=== PATIENT | female | born 1970 | race Caucasian/White ===

== ENCOUNTER 2020-02-06 17:56 | Emergency (ER) | payer OTHER, SELFPAY ==
--- NOTE | 2020-02-06 | ECG_ITS ---
Test Reason : CHEST PAIN Blood Pressure : / mmHG Vent. Rate : 079 BPM Atrial Rate : 079 BPM P-R Int : 144 ms QRS Dur : 108 ms QT Int : 400 ms P-R-T Axes : 065 -05 046 degrees QTc Int : 458 ms Normal sinus rhythm Incomplete right bundle branch block Normal ECG No previous ECGs available Referred By: Generic ED Physician Electronically Signed By:STEPHON BRADY MD
[2020-02-06 18:41] VITALS: PULSE 105; RESP 16; TEMP 36.5; O2SAT 100; BMI 23.3
--- NOTE | 2020-02-06 18:48 | XR_ITS ---
EXAMINATION: PORTABLE CHEST 1 VIEW CLINICAL INFORMATION: Chest pain . COMPARISON: No recent pertinent prior studies are available for comparison. TECHNIQUE: Portable frontal view of the chest was obtained. FINDINGS: The lungs are well expanded. No focal infiltrate, effusion, edema, or pneumothorax. Cardiac and mediastinal silhouettes are within normal limits for technique. No acute bony abnormality seen. XR/XR chest 1V IMPRESSION: No evidence of acute disease.
--- NOTE | 2020-02-06 18:52 | ED_ITS ---
HPI - Chest Pain General Chief Complaint: Chest Pain Stated Complaint: CHEST PAIN Time Seen by Provider: 02/06/20 18:36 Source: patient Mode of arrival: ambulatory Limitations: no limitations History of Present Illness HPI narrative: Patient presents to ED for pressure-like chest pain that began since 17:00. Patient states chest pain started while having a constant antony where her daughter over the phone. Patient describes chest pain as pressure ( someone sitting on her chest). Patient states also left arm tingling. Patient states he has never happened before. Patient denies any drug use past medical history. Patient does not know her family history.. Related Data Home Medications Medication Instructions Recorded Confirmed bupropion HCl 1 tab PO DAILY 02/06/20 02/06/20 trazodone 1 tab PO BEDTIME PRN 02/06/20 02/06/20 Allergies Allergy/AdvReac Type Severity Reaction Status Date / Time No Known Allergies Allergy Verified 02/06/20 18:48 Review of Systems Constitutional: Constitutional: Reports as per HPI and Reports no additional constitutional complaints Eyes: Eyes: Reports as per HPI and Reports no additional eye complaints ENT: Reports system reviewed and no additional complaints, except as documented and Reports as per HPI Cardiovascular: Cardiovascular: Reports as per HPI, Reports no additional cardiovascular complaints and Reports chest pain Respiratory: Respiratory: Reports as per HPI and Reports no additional respiratory complaints Gastrointestinal: Gastrointestinal: Reports as per HPI and Reports no additional gastrointestinal complaints Musculoskeletal: Musculoskeletal: Reports no additional musculoskeletal complaints and Reports as per HPI Neurologic: Reports system reviewed and no additional complaints, except as documented and Reports as per HPI [facility] Past Medical History Medical History (Updated 02/07/20 @ 00:29 by OLAYINKA Hay) WPW (Qqwzn-Cxenkchey-Jjcpu syndrome) Social History Social History Alcohol intake: unknown Smoking Status: Unknown if ever smoked Use of substances other than those prescribed or required for medical reasons: No Advance Directives: No Advance Directives Information Provided: No Physical Exam Vital Signs: Vital Signs: Last Vital Signs Temp 97.7 F 02/06/20 20:17 Pulse 74 02/06/20 22:00 Resp 16 02/06/20 22:00 BP 132/78 02/06/20 22:00 Pulse Ox 99 02/06/20 22:00 Body Mass Index 23.3 Const: General: cooperative, healthy appearing, alert and awake Orientation/consciousness: oriented to person, oriented to place, oriented to time and patient oriented x3 HENMT: Head: Yes normal to inspection and Yes No palpable skull fracture pres ent Eyes: General: appearance normal, both eyes and all related structures Neck: Neck: Yes normal visual inspection and Yes full ROM Chest: Chest palpation & inspection: normal inspection of the chest and normal palpation of entire chest wall Resp: Effort & Inspection: normal respiratory effort and able to speak in complete sentences Auscultation: clear to auscultation bilaterally Cardio: Jugular venous distension: no JVD Heart sounds: S1 normal heart sound present GI: Inspection: Yes normal to inspection and No abdominal wall ecchymosis Palpation (GI): Soft to palpation, not firm, nontender and no guarding : General: No CVA tenderness and Yes no CVA tenderness Back/Spine/Pelvis: Back: no CVA tenderness, No CVA tenderness and No back tenderness Skin: General skin exam: no rashes or lesions noted and elasticity normal Neuro: General: oriented to person, oriented to place, oriented to time, patient oriented x3, gait normal and CN's II-XI intact bilaterally Cranial nerves: Yes CN's II-XII intact bilaterally Extrem: Other: Lower extremities negative for any swelling, pitting edema, or calf pain. General: Yes normal to inspection and Yes full ROM Psych: Other: Anxious Appearance: grossly normal and well kempt Course Course Course Narrative: Patient seems very anxious. Will do medical evaluation to make sure there is no life-threatening etiology. While evaluating patient states chest pain felt better while she sit up. Patient states chest pain was worse when she lies down flat. This may indicate pericarditis, but patient denies any pleuritic chest pain and does states pressure. Also EKG does not have any diffuse ST elevation. Pericarditis is unlikely. Will give aspirin and 1 nitrate. Patient states pain improved area became back. Will also do a D-dimer to make sure there is no typical PE presentation. Initially EKG is normal. Reevaluation(s) Reevaluation #1: Patient's chest pressure resolved after receiving 1 nitrate and aspirin. Patient had elevated D-dimer so she was sent for chest CT which was negative for PE. Initial troponin was positive. Chest x-ray normal. Plans to do repeat troponin to make sure there is not acute myocardial infarction. Time: 20:17 Reevaluation #2: Patient signed out against medical advice. Patient did not want to wait for results. patient was informed risks of , CA, and life disablity. patient still wanted to sign out agjulia GIBBONS. Chest CT negative for PE Time: 22:44 Reevaluation #3: Patient was called back and informed of elevated troponin level which could indicate myocardial infarction. Patient informed to come back to the ER immediately. Time: 23:01 MDM - Chest Pain MDM Narrative Medical decision making narrative: Chest pain Lab Data Result diagrams: 02/06/20 19:11 02/06/20 19:11 Labs: Lab Results 02/06/20 02/06/20 02/06/20 Range/Units 19:11 19:11 19:11 WBC 9.1 (4.8-10.8) X10*3/uL RBC 4.59 (4.20-5.50) X10*6/uL Hgb 14.3 (12.0-16.0) g/dl Hct 42.4 (37-47) % MCV 92.4 (80-98) fL MCH 31.2 (27.0-33.0) pg MCHC 33.7 (31.0-35.0) g/dl RDW 12.2 (11.0-16.0) % Plt Count 260 (160-400) X10*3/uL MPV 9.4 (9.4-12.3) fL Immature Gran % (Auto) 0.3 (0.0-0.4) % Neut % (Auto) 69.4 (45-73) % Lymph % (Auto) 24.4 (20-40) % [place] % (Auto) 4.2 (2-11) % Eos % (Auto) 1.0 (0-4) % Baso % (Auto) 0.7 (0-2) % Lymph # (Auto) 2.2 (1.2-4.9) X10*3/uL [place] # (Auto) 0.4 (0.1-1.2) X10*3/uL Eos # (Auto) 0.1 (0.0-0.4) X10*3/uL Baso # (Auto) 0.1 (0.0-0.2) X10*3/uL Abs Immat Gran (auto) 0.03 (0.00-0.03) X10*3/uL Absolute Neuts (auto) 6.4 (2.0-8.3) X10*3/uL Absolute Nucleated RBC 0.000 (0.0-0.012) X10*3/uL Nucleated RBC % (auto) 0.0 (0.0-0.2) /100WBC PT 11.5 (10.8-13.0) SEC INR 1.0 (0.9-1.1) APTT 30.9 (24.1-38.0) SEC D-Dimer 433 NG/ML Sodium 140 (135-145) mmol/L Potassium 3.7 (3.3-5.1) mmol/l Chloride 103 (96-108) mmol/L Carbon Dioxide 24 (22-29) mmol/L Anion Gap 17 (12-20) BUN 11 (9-16) mg/dL Creatinine 0.84 (0.5-1.4) mg/dL Estim Creat Clear Calc 72.8 Estimated GFR > 60 Random Glucose 83 (60-115) mg/dL Calcium 9.7 (8.4-10.2) mg/dL Total Bilirubin 0.4 (0.0-1.0) mg/dL AST 33 H (5-31) U/L ALT 27 (0-31) U/L Alkaline Phosphatase 89 (39-117) U/L Troponin I High Sens (<3.5-17.0) ng/L B-Natriuretic Peptide (<100) pg/mL Total Protein 6.8 (6.5-8.0) g/dL Albumin 4.7 (3.5-5.0) g/dL Beta HCG, Quant < 2 mIU/mL Coronavirus (PCR) (Negative) Influenza Type A (PCR) (Negative) Influenza Type B (PCR) (Negative) RSV RNA Qual (PCR) (Negative) 02/06/20 02/06/20 02/06/20 Range/Units 19:11 19:11 19:11 WBC (4.8-10.8) X10*3/uL RBC (4.20-5.50) X10*6/uL Hgb (12.0-16.0) g/dl Hct (37-47) % MCV (80-98) fL MCH (27.0-33.0) pg MCHC (31.0-35.0) g/dl RDW (11.0-16.0) % Plt Count (160-400) X10*3/uL MPV (9.4-12.3) fL Immature Gran % (Auto) (0.0-0.4) % Neut % (Auto) (45-73) % Lymph % (Auto) (20-40) % [place] % (Auto) (2-11) % Eos % (Auto) (0-4) % Baso % (Auto) (0-2) % Lymph # (Auto) (1.2-4.9) X10*3/uL [place] # (Auto) (0.1-1.2) X10*3/uL Eos # (Auto) (0.0-0.4) X10*3/uL Baso # (Auto) (0.0-0.2) X10*3/uL Abs Immat Gran (auto) (0.00-0.03) X10*3/uL Absolute Neuts (auto) (2.0-8.3) X10*3/uL Absolute Nucleated RBC (0.0-0.012) X10*3/uL Nucleated RBC % (auto) (0.0-0.2) /100WBC PT (10.8-13.0) SEC INR (0.9-1.1) APTT (24.1-38.0) SEC D-Dimer NG/ML Sodium (135-145) mmol/L Potassium (3.3-5.1) mmol/l Chloride (96-108) mmol/L Carbon Dioxide (22-29) mmol/L Anion Gap (12-20) BUN (9-16) mg/dL Creatinine (0.5-1.4) mg/dL Estim Creat Clear Calc Estimated GFR Random Glucose (60-115) mg/dL Calcium (8.4-10.2) mg/dL Total Bilirubin (0.0-1.0) mg/dL AST (5-31) U/L ALT (0-31) U/L Alkaline Phosphatase (39-117) U/L Troponin I High Sens 17.8 H (<3.5-17.0) ng/L B-Natriuretic Peptide < 10 (<100) pg/mL Total Protein (6.5-8.0) g/dL Albumin (3.5-5.0) g/dL Beta HCG, Quant mIU/mL Coronavirus (PCR) NEGATIVE (Negative) Influenza Type A (PCR) NEGATIVE (Negative) Influenza Type B (PCR) NEGATIVE (Negative) RSV RNA Qual (PCR) NEGATIVE (Negative) 02/06/20 Range/Units 22:17 WBC (4.8-10.8) X10*3/uL RBC (4.20-5.50) X10*6/uL Hgb (12.0-16.0) g/dl Hct (37-47) % MCV (80-98) fL MCH (27.0-33.0) pg MCHC (31.0-35.0) g/dl RDW (11.0-16.0) % Plt Count (160-400) X10*3/uL MPV (9.4-12.3) fL Immature Gran % (Auto) (0.0-0.4) % Neut % (Auto) (45-73) % Lymph % (Auto) (20-40) % [place] % (Auto) (2-11) % Eos % (Auto) (0-4) % Baso % (Auto) (0-2) % Lymph # (Auto) (1.2-4.9) X10*3/uL [place] # (Auto) (0.1-1.2) X10*3/uL Eos # (Auto) (0.0-0.4) X10*3/uL Baso # (Auto) (0.0-0.2) X10*3/uL Abs Immat Gran (auto) (0.00-0.03) X10*3/uL Absolute Neuts (auto) (2.0-8.3) X10*3/uL Absolute Nucleated RBC (0.0-0.012) X10*3/uL Nucleated RBC % (auto) (0.0-0.2) /100WBC PT (10.8-13.0) SEC INR (0.9-1.1) APTT (24.1-38.0) SEC D-Dimer NG/ML Sodium (135-145) mmol/L Potassium (3.3-5.1) mmol/l Chloride (96-108) mmol/L Carbon Dioxide (22-29) mmol/L Anion Gap (12-20) BUN (9-16) mg/dL Creatinine (0.5-1.4) mg/dL Estim Creat Clear Calc Estimated GFR Random Glucose (60-115) mg/dL Calcium (8.4-10.2) mg/dL Total Bilirubin (0.0-1.0) mg/dL AST (5-31) U/L ALT (0-31) U/L Alkaline Phosphatase (39-117) U/L Troponin I High Sens 142.7 H D (<3.5-17.0) ng/L B-Natriuretic Peptide (<100) pg/mL Total Protein (6.5-8.0) g/dL Albumin (3.5-5.0) g/dL Beta HCG, Quant mIU/mL Coronavirus (PCR) (Negative) Influenza Type A (PCR) (Negative) Influenza Type B (PCR) (Negative) RSV RNA Qual (PCR) (Negative) ECG Data ECG #1: Interpretation: Normal sinus rhythm. Normal EKG. Ventricular rate 76. Pr interval 144. QTC 458. Negative STEMI Discharge Plan Discharge Clinical Impression: Chest pain Patient Disposition: Left Against Medical Advice Instructions: Chest Pain (ED), Acute Coronary Syndrome (ED) Additional Instructions: Return to the ED immediately for any worsening chest pain, shortness of breath, swelling of lower extremities, or any other concerning symptoms. Prescriptions: No Action trazodone 100 mg tablet 1 tab PO BEDTIME PRN (Reason: insomnia) RF: 0 bupropion HCl 300 mg tablet extended release 24 hr 1 tab PO DAILY RF: 0 Referrals: Talon Marion MD [Physician] - 2 days (Chest pain. Acute coronary syndrome. Sign out against medical advice) Stand Alone Forms: Against Medical Advice Interventions: ED Discharge Assessment Last Done: 02/06/20 22:38 Discharge Date/Time: 02/06/20 22:50 Print Language: Thai
[2020-02-06 19:13] VITALS: BP 137/81; PULSE 96
[2020-02-06] MEDS: Nitroglycerin 0.4 MG TAB.SUBL SUBLINGUAL (19:13)
[2020-02-06] MEDS: Aspirin Enteric Coated 325 MG TABLET.DR PO (19:15)
[2020-02-06 19:20] LABS: MANUAL DIFF FLAG NO
[2020-02-06 19:23] LABS: Prothrombin Time 11.5 SEC (10.8-13.0)
[2020-02-06 19:25] VITALS: PULSE 96
[2020-02-06 19:25] LABS: Partial Thromboplastin Time 30.9 SEC (24.1-38.0)
[2020-02-06 19:26] LABS: D Dimer 433 NG/ML
--- NOTE | 2020-02-06 19:35 | PC.NURSE ---
IV PLACED AND LABS DRAWN. COVID COLLECTED AND SENT.
[2020-02-06 19:41] LABS: Basophils Absolute Auto 0.1 X10*3/uL (0.0-0.2); Basophils Percent Auto 0.7 % (0-2); Eosinophils Absolute Auto 0.1 X10*3/uL (0.0-0.4); Hematocrit 42.4 % (37-47); Hemoglobin 14.3 g/dl (12.0-16.0); Imm Gran Abs Auto 0.03 X10*3/uL (0.00-0.03); Imm Gran Pct Auto 0.3 % (0.0-0.4); Lymphocytes Absolute Auto 2.2 X10*3/uL (1.2-4.9); Lymphocytes Percent Auto 24.4 % (20-40); Mean Corpuscular HGB Conc 33.7 g/dl (31.0-35.0); Mean Corpuscular Hemoglobin 31.2 pg (27.0-33.0); Mean Corpuscular Volume 92.4 fL (80-98); Mean Platelet Volume 9.4 fL (9.4-12.3); Monocytes Absolute Auto 0.4 X10*3/uL (0.1-1.2); Monocytes Percent Auto 4.2 % (2-11); Neutrophils Absolute Auto 6.4 X10*3/uL (2.0-8.3); Neutrophils Percent Auto 69.4 % (45-73); Platelet Count 260 X10*3/uL (160-400); Red Blood Count 4.59 X10*6/uL (4.20-5.50); Red Cell Distribution Width 12.2 % (11.0-16.0); White Blood Count 9.1 X10*3/uL (4.8-10.8)
[2020-02-06 19:51] LABS: Troponin-I High Sensitivity 17.8 ng/L (<3.5-17.0)
[2020-02-06 19:57] LABS: Influenza A PCR NEGATIVE (Negative); Influenza B PCR NEGATIVE (Negative); Resp Syncy Virus RNA Qual PCR NEGATIVE (Negative); SARS COV2 PCR INHOUSE NEGATIVE (Negative)
[2020-02-06 20:09] LABS: Alanine Aminotransferase 27 U/L (0-31); Albumin Level 4.7 g/dL (3.5-5.0); Alkaline Phosphatase 89 U/L (39-117); Anion Gap 17 (12-20); Aspartate Amino Transferase 33 U/L (5-31); Bilirubin Total 0.4 mg/dL (0.0-1.0); Blood Urea Nitrogen 11 mg/dL (9-16); Calcium 9.7 mg/dL (8.4-10.2); Carbon Dioxide 24 mmol/L (22-29); Chloride 103 mmol/L (96-108); Creatinine Clr Calc Pharmacy 72.8; Estimated Glomerular Filt Rate > 60; Glucose Random 83 mg/dL (60-115); Potassium 3.7 mmol/l (3.3-5.1); Sodium 140 mmol/L (135-145); Total Protein 6.8 g/dL (6.5-8.0)
[2020-02-06 20:11] LABS: B Type Natriuretic Peptide < 10 pg/mL (<100)
--- NOTE | 2020-02-06 20:12 | CT_ITS ---
EXAMINATION: CT ANGIOGRAM OF THE CHEST WITH AND WITHOUT CONTRAST (CT PULMONARY ANGIOGRAM FOR PE) CLINICAL INFORMATION: Elevated d-dimer. Chest pain. Pulmonary embolism? COMPARISON: Chest x-ray earlier the same day TECHNIQUE: Prior to contrast administration, noncontrast localization images were obtained. Subsequently, multidetector volumetric imaging was performed from the thoracic inlet to below the diaphragms following the administration of 65 mL Omnipaque 350 intravenous contrast. No contrast reaction reported Sagittal, coronal, and MIP oblique sagittal reformatted images were obtained on the CT workstation, uploaded to PACS, and reviewed. This CT examination was performed using dose optimization techniques as appropriate, variously including the following: *Automated exposure control *Adjustment of mA and/or kV according to patient size (this includes techniques or standardized protocols for targeted exams where dose is matched to indication/reason for exam; i.e. extremities or head) *Use of iterative reconstruction technique Total exam dose-length product 260 mGy-cm FINDINGS: QUALITY OF STUDY/CONTRAST BOLUS: Satisfactory. PULMONARY ARTERIES: No central or segmental pulmonary emboli. THORACIC AORTA: No aneurysm or dissection. LUNG: There is mosaic lung attenuation suggesting small airways disease. Scattered small pulmonary nodules are present. 3 mm right upper lobe nodule in image 118/458. 5 mm right lower lobe nodule in image 222. PLEURA: No pleural effusion or pneumothorax. MEDIASTINUM: Normal heart size. No pericardial effusion. No hilar or mediastinal lymphadenopathy. No evidence of septal bowing or right heart strain. CHEST WALL/AXILLA: No axillary or internal mammary lymphadenopathy. OSSEOUS STRUCTURES: Likely bone island in T8. No acute or suspicious osseous abnormality. UPPER ABDOMEN: No adrenal mass. No reflux of contrast into the hepatic veins to suggest elevated right heart pressures. CT/CT angio chest PE protocol IMPRESSION: No pulmonary embolus seen. There is diffuse mosaic lung attenuation suggesting small airways disease. A few scattered pulmonary nodules are present for example a 3 mm right upper lobe pulmonary nodule and a 5 mm right lower lobe pulmonary nodule. According to the UPDATED 2017 Fleischner Society recommendations, the advised follow-up imaging for solid nodules < 6 mm is: LOW RISK PATIENT: No routine follow-up. HIGH RISK PATIENT: Optional CT at 12 months. VTE: negative
[2020-02-06 20:14] VITALS: BP 156/100; PULSE 79; RESP 16
[2020-02-06 20:17] VITALS: BP 156/100; PULSE 80; RESP 15; TEMP 36.5
--- NOTE | 2020-02-06 20:46 | PC.NURSE ---
Patient currently in cat scan. Patient reports having a headache and PA aware. Patient prescribed motrin
[2020-02-06] MEDS: iohexoL 350 MG/ML 100 ML INFUS..BTL 65 ML IV (20:50)
[2020-02-06] MEDS: Ibuprofen 800 MG TABLET PO (21:00)
[2020-02-06 22:00] VITALS: BP 132/78; PULSE 74; RESP 16; O2SAT 99
--- NOTE | 2020-02-06 22:07 | PC.NURSE ---
Patient's CAT SCAN negative for pulmonary embolism. Patient needs 2nd troponin drawn at 1022.
[2020-02-06 22:51] LABS: Troponin-I High Sensitivity 142.7 ng/L (<3.5-17.0)
--- NOTE | 2020-02-06 22:51 | PC.NURSE ---
LAB CALLING WITH CRITICAL TROPONIN OF 142.7. PATIENT LEFT AMA. SHAHNAZ BHAGAT INFORMED OF RESULT AT THIS TIME.
[2020-02-07 00:06] LABS: HCG Quantitative < 2 mIU/mL
== END 2020-02-06 22:50 | disposition left against medical advice (07) ==
PROVIDERS: Physician Assistant; Emergency Provider Emergency Medicine; PCP Nurse Practitioner Family
DX: R07.9 Chest pain, unspecified (principal); Z20.828 Contact with and (suspected) exposure to other viral communicable diseases
CPT/HCPCS: 0241U; 36415; 71045; 71275; 80053; 83880; 84484; 84702; 85025; 85379; 85610; 85730; 93005; 99285; Q9967

== ENCOUNTER 2020-02-06 23:20 | Inpatient (IN) | payer OTHER, SELFPAY ==
[2020-02-06 23:30] VITALS: BP 149/95; PULSE 82; RESP 12; TEMP 36.7; O2SAT 100; BMI 23.3
--- NOTE | 2020-02-06 23:38 | ECG_ITS ---
Test Reason : ELEVATED TROP Blood Pressure : / mmHG Vent. Rate : 069 BPM Atrial Rate : 069 BPM P-R Int : 150 ms QRS Dur : 112 ms QT Int : 416 ms P-R-T Axes : 063 010 051 degrees QTc Int : 445 ms Normal sinus rhythm Incomplete right bundle branch block Normal ECG When compared with ECG of 06-FEB-2020 18:04, No significant change was found Referred By: Darinel Valdovinos Electronically Signed By:STEPHON BRADY MD
--- NOTE | 2020-02-06 23:46 | ED.CHESTPAIN ---
HPI - Chest Pain General Chief Complaint: Chest Pain Stated Complaint: elevated labs Time Seen by Provider: 02/06/20 23:27 Source: patient Mode of arrival: ambulatory Limitations: no limitations History of Present Illness HPI narrative: Patient return to the ER after she she was called and informed of elevated troponin. Patient presently does not have any chest pain. Related Data Home Medications Medication Instructions Recorded Confirmed bupropion HCl 1 tab PO DAILY 02/06/20 02/06/20 trazodone 1 tab PO BEDTIME PRN 02/06/20 02/06/20 Allergies Allergy/AdvReac Type Severity Reaction Status Date / Time No Known Allergies Allergy Verified 02/06/20 18:48 Review of Systems Review of Systems: Yes all other systems are reviewed and are negative Constitutional: Constitutional: Reports as per HPI and Reports no additional constitutional complaints Eyes: Eyes: Reports as per HPI and Reports no additional eye complaints ENT: Reports system reviewed and no additional complaints, except as documented and Reports as per HPI Cardiovascular: Cardiovascular: Reports as per HPI, Reports no additional cardiovascular complaints and Reports chest pain (Chest pain resolved) Respiratory: Respiratory: Reports as per HPI and Reports no additional respiratory complaints Gastrointestinal: Gastrointestinal: Reports no additional gastrointestinal complaints Musculoskeletal: Musculoskeletal: Reports no additional musculoskeletal complaints and Reports as per HPI Neurologic: Reports system reviewed and no additional complaints, except as documented and Reports as per HPI Psychiatric: Psychiatric: Reports no additional psychiatric complaints and Reports as per HPI PMF Past Medical History Medical History (Updated 02/07/20 @ 00:29 by OLAYINKA Hay) WPW (Jbpet-Ixzhwqese-Wttrg syndrome) Social History Social History Alcohol intake: unknown Smoking Status: Unknown if ever smoked Use of substances other than those prescribed or required for medical reasons: No Advance Directives: No Advance Directives Information Provided: No Physical Exam Vital Signs: Vital Signs: Last Vital Signs Temp 98.1 F 02/06/20 23:30 Pulse 82 02/06/20 23:30 Resp 12 02/06/20 23:30 BP 149/95 H 02/06/20 23:30 Pulse Ox 100 02/06/20 23:30 Body Mass Index 24.3 Const: General: cooperative, healthy appearing, comfortable, no acute distress, well developed, alert, awake and Physically active Orientation/consciousness: patient oriented x3 HENMT: Head: Yes normal to inspection and Yes No palpable skull fracture present Eyes: General: appearance normal, both eyes and all related structures Neck: Neck: Yes normal visual inspection and Yes full ROM Chest: Chest palpation & inspection: normal inspection of the chest and normal palpation of entire chest wall Resp: Effort & Inspection: normal respiratory effort and able to speak in complete sentences Cardio: Jugular venous distension: no JVD Heart sounds: S1 normal heart sound present and S2 normal heart sound present GI: Inspection: Yes normal to inspection and No abdominal wall ecchymosis Palpation (GI): Soft to palpation, not firm, nontender and no guarding : General: No CVA tenderness and Yes no CVA tenderness Back/Spine/Pelvis: Back: no CVA tenderness, No CVA tenderness and No back tenderness Skin: General skin exam: no rashes or lesions noted and elasticity normal Neuro: General: patient oriented x3, gait normal and CN's II-XI intact bilaterally Cranial nerves: Yes CN's II-XII intact bilaterally Extrem: General: Yes normal to inspection and Yes full ROM Psych: Appearance: grossly normal, well kempt and not disheveled Course Course Course Narrative: Patient will have repeat EKG and contact Dr. [employer] field examiner on-call. Reevaluation(s) Reevaluation #1: Negative for any new EKG changes on 2nd EKG. EKGs, lab results, and reading results of CTA was sent to Dr. Lovelace of Cardiology. Waiting for his response. Patient vital signs are stable presently. Time: 23:47 Reevaluation #2: Spoke with Dr. Marion of Cardiology. He was informed of patient's history and physical exam. He also received lab results, results of CTA, and pictures of EKGs. He agrees patient should be started on heparin. Case presented to hospitalist. Time: 00:27 MDM - Chest Pain MDM Narrative Medical decision making narrative: NSTEMI ECG Data ECG #1: Interpretation: Normal sinus rhythm. Incomplete right bundle-branch block. Ventricular rate 69. Pr interval 150. QTC 445. Discharge Plan Discharge Clinical Impression: Non-ST elevation NV (NSTEMI) Patient Disposition: Admitted As Inpatient
[2020-02-07] VITALS (7 sets, daily range): BP systolic 112–148; BP diastolic 62–102; PULSE 68–99; RESP 14–20; TEMP 36.4–37.6; O2SAT 98–100; BMI 24.3
[2020-02-07] MEDS: Heparin Sodium,Porcine 5,000 UNIT/ML VIAL 5080.24 UNIT IVPUSH (00:50)
[2020-02-07] MEDS: Heparin Sodium,Porcine/1/2NS 25,000 UNIT/250 ML IV.SOLN 8.89 UNIT IVCONT (01:04)
--- NOTE | 2020-02-07 01:06 | PC.NURSE ---
Patient started on heparin drip. Patient was weighed prior to administration with bedscale. Previous stated weight of patient was 63.4 kg and bedscale weight 66.3 kg. The starting dose rate based on INR was 14 units/kg/hour. Patient's rate was 9.28 nl/hr based on new weight.
[2020-02-07] MEDS: Butalb/Acetamin/Caff 50/325/40 TABLET 1 TAB PO ×2 (01:34→02:17)
--- NOTE | 2020-02-07 01:35 | PC.NURSE ---
Patient medicated for headache as noted on EMAR. 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
--- NOTE | 2020-02-07 02:35 | CA_ITS ---
Transthoracic Echocardiogram Patient (Last, First, Middle): Shireen Cevallos, Gender: Female Date of : 1970 Age: 49 Procedure Date: 02/07/2020 Procedure Type: Transthoracic [place] [facility] [place]: 165.1 cm Weight: 67.59 kg BSA: 1.75 m2 Heart Rate: bpm BP: 120 / 75 mmHg Certified First Assistant: COLT Amaya MD: Bean Amador MD S[employer] Stock[employer] Ironer: Jaylen Urbina MD Symptoms: NSTEMI Study Quality: Good ECG Rhythm: Sinus Conclusions: - Normal study Findings Left Ventricle Normal left ventricular size, thickness, and systolic function. The visually estimated ejection fraction is between 60-65%. Diastolic function is normal for age. Right Ventricle Normal right ventricular cavity size and systolic function. Atria Both atria are normal in size. There is no evidence of interatrial shunt. Aortic Valve Normal aortic valve structure and function. There is no aortic valve stenosis. There is no aortic valve regurgitation. Mitral Valve Normal mitral valve structure and function. There is trace mitral valve regurgitation. There is no mitral valve stenosis. Pulmonic Valve The pulmonic valve is likely normal. Tricuspid Valve Normal tricuspid valve structure. There is trace tricuspid valve regurgitation. The right ventricular systolic pressure is normal. The right ventricular systolic pressure is 19 mmHg. Normal right atrial pressure. There is no evidence of pulmonary hypertension. Great Vessels All visible segments of the aorta are normal in size. The pulmonary artery was not well visualized. Venous The inferior vena cava is normal in size and collapses greater than 50% with inspiration. Pericardium/Pleural There is no evidence of pericardial effusion. Prior Study Comparison No prior study available for comparison. Measurements 2D Linear Measurements IVSd: 0.99 0.6-0.9/0.6-1.0 cm LVIDd: 4.13 3.9-5.3/4.2-5.9 cm LVIDd Index: 2.36 2.4-3.2/2.2-3.1 cm/m2 LVIDs: 2.63 2.0-3.6 cm LVPWd: 0.91 0.7-1.1 cm Ao Root: 3.30 2.1-3.5 cm LA Diam: 2.70 2.7-3.8/3.0-4.0 cm LAIDs Index: 1.54 1.5-2.3 cm/m2 LV Mass: 155.67 67-162/88-224 g LV Mass Index: 88.96 43-95/49-115 g/m2 LVOT Diam: 2.00 3.0+(-)1.3 cm 2D Systolic Function EF 4C: 63.90 >55% EF 2C: 60.50 >55% EF BiP: 61.30 >55% Mitral Valve MV Pk E: 0.85 MV PK A: 0.54 MV Decel Time: 201.00 E/A: 1.60 E'Lateral: 12.10 E'Medial: 7.74 E/E' Med: 11.00 E/E' Lat: 7.00 PHT: 59.00 MVA PHT: 3.73 Decel Bryan: 4.23 Aortic Valve AoV Pk Dariusz: 1.48 AoV Mn Dariusz: 0.99 AoV VTI: 0.26 AoV Pk Grad: 9.00 Aov Mn Grad: 5.00 JOSE MIGUEL Cont.VTI: 2.61 LVOT LVOT Pk Dariusz: 1.15 LVOT Mn Dariusz: 0.78 LVOT VTI: 0.22 LVOT Pk Grad: 5.00 LVOT Mn Grad: 3.00 LVOT Diam: 2.00 LVOT Area: 3.14 Diastolic Function MV Pk E: 0.85 MV Pk A: 0.54 E/A: 1.60 E'Medial: 7.74 E/E' Med: 11.00 E' Laterial: 12.10 E/E' Lat: 7.00 Tricuspid Valve TR Pk Dariusz: 1.98 TR Pk Grad: 16.00 RA Press: 3.00 RVSP: 19.00 Great Vessels Aorta Ao Root-2D: 3.30 2.0-3.7 cm Ao Asc: 3.30 2.1-3.4 cm Ao Arch: 3.00 Updated in Other Vendor System with Status of Final Jaylen Urbina MD electronically signed on 02/07/2020 12:44:26 PM with status of Final
[2020-02-07] MEDS: traZODone HCL 100 MG TABLET PO (03:16)
--- NOTE | 2020-02-07 05:25 | P.HPHOSP_ITS ---
History of Present Illness Date of Service: 02/07/20 Chief Complaint: Chest pain This is a 49-year-old female with no significant past medical history who presents to the hospital with complaints of chest pain. Occurred this afternoon while she was at rest, talking to her daughter over the phone, Patient describes the chest pain as midsternal, nonradiating, heavy, about 8/10, her left arm felt heavy, and tingly. Associated with shortness of breath this been going on for few days, some nausea, headache. No palpitations. No change in vision. Patient reports that after she felt her chest pain, she went and checked her blood pressure which was elevated at 180 1/122. She has a history of antony hypertension was supposed to be taking lisinopril but has not been taking it because makes her feel very tired. She denies any vomiting, no cough, no sputum production, no fever or chills, no abdominal pain, no diarrhea or constipation. No urinary symptoms and no lower extremity edema. No orthopnea or PND. Patient reports that she walked about 7 miles the day prior with no chest pain but has shortness of breath. On arrival to the ED hemodynamically stable with a blood pressure of 137/81 initially but did creep up to 156/100. Heart rate of 105 with other vitals normal Labs generally unremarkable except for troponin of initially 17.8 that increased to 142.7 on repeat Patient initially came into the ED with complaints of above signed out AMA, but returned after the PA called her stating she had a mini heart attack Cardiology consulted, patient will be placed on heparin GGT and admitted further management Past medical history: Anxiety, of Tkjem-Nkydsvkom-Qrbog syndrome status post ablation Past surgical history: Status post cardiac ablation ablation Family history: Does not know her family Social history: Comes from home, smoker but quit few months ago, denies any illicit drugs and no alcohol Review of Systems Review of Systems: Yes all other systems are reviewed and are negative Neurologic: Reports system reviewed and no additional complaints, except as documented and Reports as per [facility] Medical History WPW (Xrhuu-Cjkejfpgv-Lyimz syndrome) Social History Household Members: None Housing: House Alcohol intake: unknown Smoking Status: Former smoker Smoked in Last 30 Days: Yes Smoking Quit Date: 01/17/20 Use of substances other than those prescribed or required for medical reasons: No Have you been hit, kicked, punched, or otherwise hurt by someone within the past year? If so, by whom?: No Do you feel safe in your current relationship?: No Current Relationship Is there a partner from a previous relationship who is making you feel unsafe now?: No Are you made to feel afraid or neglected: No Advance Directives: No Advance Directives Information Provided: No Do you have thoughts of harming others: None Do you have a plan to hurt others: No Plan Recently lost weight without trying: No Meds Allergies Allergy/AdvReac Type Severity Reaction Status Date / Time No Known Allergies Allergy Verified 02/06/20 18:48 Home Medications Medication Instructions Recorded Confirmed Type bupropion HCl 1 tab PO DAILY 02/06/20 02/06/20 History trazodone 1 tab PO BEDTIME PRN 02/06/20 02/06/20 History Physical Exam Vital Signs and Narrative: Vital Signs: Last Vital Signs Temp 98.2 F 02/07/20 02:44 Pulse 94 02/07/20 02:44 Resp 20 02/07/20 02:44 BP 136/93 H 02/07/20 02:44 Pulse Ox 100 02/07/20 02:44 Body Mass Index 24.3 Const: General: cooperative and no acute distress Orientation/consciousness: patient oriented x3 Eyes: General: appearance normal, both eyes and all related structures Pupils: Equal, round and reactive pupils present Resp: Effort & Inspection: normal respiratory effort and able to speak in complete sentences Auscultation: clear to auscultation bilaterally Cardio: Rate: regular rate Rhythm: regular rhythm GI: Palpation (GI): Soft to palpation Auscultation: normal bowel sounds Skin: General skin exam: no rashes or lesions noted Neuro: General: patient oriented x3 Cranial nerves: Yes Equal, round and reactive pupils present Cognition (Neuro): normal cognition Extrem: General: Yes normal to inspection and Yes no pedal edema Assessment and Plan (1) Non-ST elevation [place] (NSTEMI): Status: Acute (2) Dyspnea: Status: Acute (3) Hypertension: Status: Inactive This is a 49-year-old female who presents to the hospital with chest pain found to have an NSTEMI # NSTEMI - came in with typical chest pain, elevated troponin, risk factors include smoking, does not know her family history Plan: - started on heparin ggt - will obtain an echocardiogram - cardiology consult # hypertension - and control, off medications, was supposed to be on lisinopril but does not tolerate it well Plan: - will hold off on starting her on a new medication pending echocardiogram finding - patient will need to be started on a new medication prior to discharge # dyspnea - possibly secondary to small airway disease versus pneumonia less likely versus CHF and a slight - BNP negative, chest x-ray showing small airway disease - long-term smoker so COPD could be an underlying cause Plan: - will start her on albuterol - may need to go for spirometry on discharge - not hypoxia, will keep off oxygen DVT prophylaxis: Heparin ggt
[2020-02-07 07:50] LABS: PTT Heparin Drip 98.7 SEC (53-77.9)
[2020-02-07] MEDS: 0.9 % Sodium Chloride Flush 3 ML SYRINGE IVFLUSH (08:00)
[2020-02-07] MEDS: buPROPion HCl XL 300 MG TAB.ER.24H PO (08:00)
--- NOTE | 2020-02-07 08:53 | MHC.CM.PN ---
CM was unable to reach Patient by phone (Covid precautions). CM spoke with Patient's Contact/Friend/ED. Patient lives alone in her house and is functionally independent (no prior services nor DME). The goal is to return home and CM has initiated and will follow for dc planning. PCP is RAYMOND Chauhan.
[2020-02-07] MEDS: Aspirin 81 MG TAB.CHEW PO (09:12)
--- NOTE | 2020-02-07 09:13 | P.CONCA_ITS ---
History of Present Illness History of Present Illness Date of Service: 02/07/20 Requesting physician: Hussein Bennett Consult reason: chest pain Chief complaint: NSTEMI Narrative: Thank you for inviting us in the cardiology consultation under back for acute coronary syndrome. 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 She stops her activity. Over the next 2 days she subsequently noticed that her shortness of breath was getting worse including climbing a flight of stairs. Yesterday in the afternoon while talking to her daughter she then suddenly developed retrosternal chest discomfort which she described as pressure with radiation left arm feeling numbness in her left arm. Symptoms did not improve by itself and she present to emergency room. Initial troponin was slightly elevated and subsequent troponin 3 hours later was significantly more elevated. She was admitted with acute coronary syndrome. She was noted to have elevated D-dimer underwent CTA which was negative for pulmonary embolism. EKG shows incomplete right bundle-branch block without acute ST T wave changes. She is completely chest pain-free at this time. No hemodynamic compromise. No cardiac arrhythmias noted. Echocardiogram is being completed, results pending. Review of Systems Constitutional: Constitutional: Denies body ache(s), Denies chills and Denies fever(s) Eyes: Eyes: Reports no additional eye complaints ENT: Reports system reviewed and no additional complaints, except as documented Cardiovascular: Cardiovascular: Reports chest pain at rest, Denies lightheadedness, Denies Loss of Consciousness, Denies palpitations and Reports dyspnea on exertion Respiratory: Respiratory: Reports dyspnea on exertion Gastrointestinal: Gastrointestinal: Reports no additional gastrointestinal complaints Genitourinary: Genitourinary: Reports no additional female genitourinary complaints Musculoskeletal: Musculoskeletal: Reports no additional musculoskeletal complaints Neurologic: Reports system reviewed and no additional complaints, except as documented and Reports as per HPI Endocrine: Endocrine: Denies palpitations Hematologic/Lymphatic: Hematologic/Lymphatic: Reports no additional hematologic/lymphatic complaints [facility] Past Medical History Medical History Hypertension WPW (Bnpsd-Woyejkxtc-Qxbrb syndrome) Social History Social History Household Members: None Housing: House Alcohol intake: unknown Smoking Status: Former smoker Smoked in Last 30 Days: Yes Smoking Quit Date: 01/17/20 Use of substances other than those prescribed or required for medical reasons: No Have you been hit, kicked, punched, or otherwise hurt by someone within the past year? If so, by whom?: No Do you feel safe in your current relationship?: No Current Relationship Is there a partner from a previous relationship who is making you feel unsafe now?: No Are you made to feel afraid or neglected: No Advance Directives: No Advance Directives Information Provided: No Do you have thoughts of harming others: None Do you have a plan to hurt others: No Plan Recently lost weight without trying: No service: No Current occupational status: unemployed Meds Allergies Allergy/AdvReac Type Severity Reaction Status Date / Time No Known Allergies Allergy Verified 02/06/20 18:48 Home Medications Medication Instructions Recorded Confirmed Type bupropion HCl 1 tab PO DAILY 02/06/20 02/06/20 History trazodone 1 tab PO BEDTIME PRN 02/06/20 02/06/20 History Physical Exam Vital Signs: Vital Signs: Last Vital Signs Temp 98.4 F 02/07/20 07:21 Pulse 84 02/07/20 07:21 Resp 20 02/07/20 07:21 BP 123/66 02/07/20 07:21 Pulse Ox 99 02/07/20 07:21 Body Mass Index 24.3 Const: General: cooperative, healthy appearing, comfortable, no acute d istress, alert and awake Nutritional Appearance: average body habitus and well nourished Orientation/consciousness: patient oriented x3 Limitations: no limitations HENMT: Head: Yes normocephalic and Yes atraumatic Eyes: General: appearance normal, both eyes and all related structures Neck: Neck: Yes trachea midline, Yes supple and Yes no JVD Chest: Chest palpation & inspection: normal inspection of the chest Resp: Effort & Inspection: normal respiratory effort Auscultation: clear to auscultation bilaterally Cardio: Jugular venous distension: no JVD Palpation: normal PMI Rate: regular rate Rhythm: regular rhythm Heart sounds: S1 normal heart sound present and S2 normal heart sound present GI: Auscultation: normal bowel sounds Skin: General skin exam: no rashes or lesions noted Neuro: General: patient oriented x3 and no focal motor deficits Extrem: General: Yes no clubbing, cyanosis or edema Psych: Appearance: grossly normal Results Labs and Meds Lab results: Laboratory Results - last 24 hr 02/07/20 07:26 PTT (Heparin Protocol) 98.7 H Laboratory Tests 02/06/20 02/06/20 02/06/20 19:11 19:11 19:11 WBC 9.1 Hgb 14.3 Hct 42.4 Potassium 3.7 BUN 11 Creatinine 0.84 Troponin I High Sens 17.8 H 02/06/20 22:17 WBC Hgb Hct Potassium BUN Creatinine Troponin I High Sens 142.7 H D EKG shows normal sinus rhythm with incomplete right bundle-branch block. Assessment and Plan (1) Acute coronary syndrome: Status: Acute History highly consistent with acute coronary syndrome with symptoms as well as positive troponins. She is highly functional woman. Risk factors may include recently elevated blood pressure which is currently normal and hyperlipidemia. She has no family history. Most likely due to acute coronary plaque rupture. There is also likelihood of spontaneous coronary artery dissection. Small likelihood of coronary vaso spasm or stress-induced cardiomyopathy. Best approach of treatment would be invasive cardiac catheterization. She was explained the risks, benefits, alternatives 2nd opinion the procedure. Need for cardiac catheterization was discussed in details. She understands and agreeable for transfer to [facility] for the same. Meanwhile will continue with IV heparin. Continue low-dose aspirin therapy. Agree with high-intensity statin therapy with target goal LDL in the long run closer to 60 mg/dL if this is acute plaque rupture story. Add low-dose metoprolol therapy for the same. Arrangements are being made for her to be transferred to [facility]. Her blood pressure and heart rate are currently stable. Echocardiogram will be reviewed later. Greater than 40 minutes was spent in managing and explaining her medical problems as well as making arrangements for transfer and coordinating her care.. Will follow up as an outpatient.
[2020-02-07] MEDS: Metoprolol Tartrate 25 MG TABLET PO (09:36)
[2020-02-07 09:44] LABS: Hematocrit 39.6 % (37-47); Hemoglobin 13.6 g/dl (12.0-16.0); Mean Corpuscular HGB Conc 34.3 g/dl (31.0-35.0); Mean Corpuscular Hemoglobin 31.7 pg (27.0-33.0); Mean Corpuscular Volume 92.3 fL (80-98); Mean Platelet Volume 9.5 fL (9.4-12.3); Platelet Count 243 X10*3/uL (160-400); Red Blood Count 4.29 X10*6/uL (4.20-5.50); Red Cell Distribution Width 12.4 % (11.0-16.0); White Blood Count 9.1 X10*3/uL (4.8-10.8)
[2020-02-07 10:09] LABS: Anion Gap 12 (12-20); Blood Urea Nitrogen 11 mg/dL (9-16); Calcium 9.1 mg/dL (8.4-10.2); Carbon Dioxide 29 mmol/L (22-29); Chloride 104 mmol/L (96-108); Creatinine Clr Calc Pharmacy 77.4; Estimated Glomerular Filt Rate > 60; Glucose Random 80 mg/dL (60-115); Potassium 4.6 mmol/l (3.3-5.1); Sodium 140 mmol/L (135-145)
--- NOTE | 2020-02-07 10:23 | PM.DS ---
DS: Providers Provider Date of admission: 02/07/20 01:05 Primary care physician: Fernanda Chauhan NP Consults: 02/07/20 02:35 Consult to Cardiology Routine Consulting Provider: Talon Marion Reason for consultation: NSTEMI Has provider been notified: Yes DS: Transfer Hospital Acceptance Reason for Transfer: NSTEMI Name of Facility: [facility] DS: Diagnosis Discharge Diagnosis (1) Acute coronary syndrome: Status: Acute DS: Medications Discharge Medications Home Medications: Home Medications Medication Instructions Recorded Confirmed bupropion HCl 1 tab PO DAILY 02/06/20 02/06/20 trazodone 1 tab PO BEDTIME PRN 02/06/20 02/06/20 Previous Rx's Medication Instructions Recorded acetaminophen 650 mg PO Q6H PRN #1 tab 02/07/20 albuterol sulfate [Ventolin HFA] 2 puff INHALATION RQ4H PRN #1 g 02/07/20 aspirin 81 mg PO DAILY #1 tab 02/07/20 atorvastatin 40 mg PO BEDTIME #1 tab 02/07/20 docusate sodium 100 mg PO DAILY PRN #1 cap 02/07/20 heparin (porcine) 5,080.24 unit IVPUSH BOLUS PRN #1 02/07/20 ml heparin(porcine) in 0.45% NaCl 25,000 unit CONTINUOUS IV INFUSION 02/07/20 .Q0M #1 ml metoprolol tartrate 25 mg PO BID #1 tab 02/07/20 ondansetron HCl (PF) 4 mg IVPUSH Q8H PRN #1 ml 02/07/20 sodium chloride 0.9 % (flush) [BD 3 ml IVFLUSH QSHIFT #1 ml 02/07/20 PosiFlush Normal Saline 0.9] DS: Summary Hospital Course Hospital Course: HPI: This is a 49-year-old female with no significant past medical history who presents to the hospital with complaints of chest pain. Occurred this afternoon while she was at rest, talking to her daughter over the phone, Patient describes the chest pain as midsternal, nonradiating, heavy, about 8/10, her left arm felt heavy, and tingly. Associated with shortness of breath this been going on for few days, some nausea, headache. No palpitations. No change in vision. Patient reports that after she felt her chest pain, she went and checked her blood pressure which was elevated at 180 1/122. She has a history of atnony hypertension was supposed to be taking lisinopril but has not been taking it because makes her feel very tired. She denies any vomiting, no cough, no sputum production, no fever or chills, no abdominal pain, no diarrhea or constipation. No urinary symptoms and no lower extremity edema. No orthopnea or PND. Patient reports that she walked about 7 miles the day prior with no chest pain but has shortness of breath. On arrival to the ED hemodynamically stable with a blood pressure of 137/81 initially but did creep up to 156/100. Heart rate of 105 with other vitals normal Labs generally unremarkable except for troponin of initially 17.8 that increased to 142.7 on repeat Patient initially came into the ED with complaints of above signed out AMA, but returned after the PA called her stating she had a mini heart attack Cardiology consulted, patient will be placed on heparin GGT and admitted further management Hospital Course: Patient was started on IV heparin, aspirin, statin and beta-flakito. She was evaluated by Cardiology the morning after admission and decision was made for the patient to be transferred to [facility] for further management. Patient's chest pain is resolved at the time of transfer. Has undergone a 2D echo which is pending read by Cardiology. Time Spent with Patient Time attestation: Total time spent providing and/or coordinating discharge services: Physical Exam Vital Signs: Vital Signs: Last Vital Signs Temp 98.4 F 02/07/20 07:21 Pulse 99 02/07/20 09:36 Resp 20 02/07/20 07:21 BP 134/83 02/07/20 09:36 Pulse Ox 99 02/07/20 07:21 Body Mass Index 24.3 DS: Data Data Completed and Pending Labs on day of discharge: Laboratory Last Values HS trop-I: 17.8 -> 142.7 -> 89.7 WBC 9.1 X10*3/uL (4.8-10.8) 02/07/20 09:22 RBC 4.29 X10*6/uL (4.20-5.50) 02/07/20 09:22 Hgb 13.6 g/dl (12.0-16.0) 02/07/20 09:22 Hct 39.6 % (37-47) 02/07/20 09:22 MCV 92.3 fL (80-98) 02/07/20 09:22 MCH 31.7 pg (27.0-33.0) 02/07/20 09: MCHC 34.3 g/dl (31.0-35.0) 02/07/20 09:22 RDW 12.4 % (11.0-16.0) 02/07/20 09:22 Plt Count 243 X10*3/uL (160-400) 02/07/20 09:22 MPV 9.5 fL (9.4-12.3) 02/07/20 09:22 Absolute Nucleated RBC 0.000 X10*3/uL (0.0-0.012) 02/07/20 09: Nucleated RBC % (auto) 0.0 /100WBC (0.0-0.2) 02/07/20 09:22 PTT (Heparin Protocol) 98.7 SEC (53-77.9) H 02/07/20 07:26 Sodium 140 mmol/L (135-145) 02/07/20 09:23 Potassium 4.6 mmol/l (3.3-5.1) D 02/07/20 09:23 Chloride 104 mmol/L (96-108) 02/07/20 09:23 Carbon Dioxide 29 mmol/L (22-29) 02/07/20 09:23 Anion Gap 12 (-20) 02/07/20 09:23 BUN 11 mg/dL (9-16) 02/07/20 09:23 Creatinine 0.79 mg/dL (0.5-1.4) 02/07/20 09:23 Estim Creat Clear Calc 77.4 02/07/20 09:23 Estimated GFR > 60 02/07/20 09:23 Random Glucose 80 mg/dL (60-115) 02/07/20 09:23 Calcium 9.1 mg/dL (8.4-10.2) D 02/07/20 09:23 Discharge Plan Discharge Patient Disposition: Xfer [facility] Referrals: Fernanda Chauhan NP [Primary Care Provider] - Discharge Medications: New atorvastatin 40 mg Tablet 40 mg PO BEDTIME Qty: 1 RF: 0 acetaminophen 325 mg Tablet 650 mg PO Q6H PRN (Reason: Pain, Mild (Pain Scale 1-3)) Qty: 1 RF: 0 docusate sodium 100 mg Capsule 100 mg PO DAILY PRN (Reason: Constipation) Qty: 1 RF: 0 aspirin 81 mg Tablet,Chewable 81 mg PO DAILY Qty: 1 RF: 0 albuterol sulfate [Ventolin HFA] 90 mcg/actuation Hfa Aerosol Inhaler 2 puff inhalation RQ4H PRN (Reason: Shortness Of Breath) Qty: 1 RF: 0 heparin (porcine) 5,000 unit/mL Solution 5,080.24 unit IVPUSH BOLUS PRN (Reason: 80 Unit/Kg - Heparin Protocol) Qty: 1 RF: 0 sodium chloride 0.9 % (flush) [BD PosiFlush Normal Saline 0.9] Syringe 3 ml IVFLUSH QSHIFT Qty: 1 RF: 0 metoprolol tartrate 25 mg Tablet 25 mg PO BID Qty: 1 RF: 0 heparin(porcine) in 0.45% NaCl 25,000 unit/250 mL Parenteral Solution 25,000 unit continuous IV infusion .Q0M Qty: 1 RF: 0 ondansetron HCl (PF) 4 mg/2 mL Solution 4 mg IVPUSH Q8H PRN (Reason: Nausea And Vomiting) Qty: 1 RF: 0 Continued trazodone 100 mg tablet 1 tab PO BEDTIME PRN (Reason: insomnia) RF: 0 bupropion HCl 300 mg tablet extended release 24 hr 1 tab PO DAILY RF: 0 Discharge Orders: Discharge Order (Routine); Ordered 02/07/20 Ordered By: Hussein Bennett Diet: advance to usual diet Activity on Discharge: [place] [facility] [place] Forms: Patient Portal Discharge page Care Plan Goals: To get treatment for NSTEMI Health Concerns: NSTEMI Plan of Treatment[place] [facility] [place]
[2020-02-07 10:49] LABS: Troponin-I High Sensitivity 89.7 ng/L (<3.5-17.0)
[2020-02-07 11:23] LABS: Glucose Urine UA NEG (NEG); Leukocyte Esterase Urine 2+ (NEG); Nitrite Urine NEG (NEG); Urine Blood 3+ (NEG); Urine Ketones 5 MG/DL (NEG); Urine Protein NEG (NEG-TRACE)
[2020-02-07 11:24] LABS: Appearance Urine CLOUDY; Color Urine YELLOW
[2020-02-07 11:35] LABS: Bacteria Urine 3+ /LPF; Squamous Epithelial Cell Urine 2+ /LPF
[2020-02-07] MEDS: cefTRIAXone sodium 1 GM in 0.9 % Sodium Chloride 50 ML IV (12:00)
== END 2020-02-07 14:00 | disposition short-term general hospital (02) | DRG 190 ==
LOC: HO.ED 02-07 00:29 → HO.IMC 02-07 01:39
PROVIDERS: Physician Assistant; Admitting Provider Internal Medicine; Emergency Provider Internal Medicine; PCP Nurse Practitioner Family; Visit Provider Family Medicine
DX: I21.4 Non-ST elevation (NSTEMI) myocardial infarction (principal); F17.210 Nicotine dependence, cigarettes, uncomplicated; I10 Essential (primary) hypertension; N39.0 Urinary tract infection, site not specified; Z79.82 Long term (current) use of aspirin; Z79.899 Other long term (current) drug therapy
CPT/HCPCS: 36415; 80048; 81001; 84484; 85027; 85730; 87086; 87088; 87186; 93005; 93306; 96365; 99285; J0696

== ENCOUNTER 2020-02-15 10:34 | Emergency (ER) | payer OTHER, SELFPAY ==
--- NOTE | 2020-02-15 | ECG_ITS ---
Test Reason : CHEST PAIN Blood Pressure : / mmHG Vent. Rate : 069 BPM Atrial Rate : 069 BPM P-R Int : 158 ms QRS Dur : 106 ms QT Int : 380 ms P-R-T Axes : 061 024 048 degrees QTc Int : 407 ms Normal sinus rhythm Incomplete right bundle branch block Borderline ECG When compared with ECG of 06-FEB-2020 23:31, No significant change was found Referred By: Generic ED Physician Electronically Signed By:ZEINA ZHAO
[2020-02-15 10:36] VITALS: BP 121/68; PULSE 64; RESP 16; TEMP 36.6; O2SAT 100; BMI 23.3
== END 2020-02-15 14:01 | disposition left against medical advice (07) ==
PROVIDERS: Emergency Provider Emergency Medicine
DX: R07.89 Other chest pain (principal)
CPT/HCPCS: 93005; 99282; 99283

== ENCOUNTER 2020-02-16 11:29 | Outpatient (REF) | payer OTHER, SELFPAY ==
[2020-02-16 14:41] LABS: Troponin-I High Sensitivity < 3.5 ng/L (<3.5-17.0)
== END 2020-02-16 11:30 | disposition home or self-care (01) ==
LOC: HO.LAB 11:29
PROVIDERS: PCP Nurse Practitioner Family; Visit Provider Internal Medicine Cardiovascular Disease
DX: R06.00 Dyspnea, unspecified (principal)
CPT/HCPCS: 84484

== ENCOUNTER → 2020-02-21 07:41 | Outpatient (REF) | payer OTHER, SELFPAY ==
--- NOTE | 2020-02-21 07:45 | CA_ITS ---
Transthoracic Echocardiogram Patient (Last, First, Middle): Shireen Cevallos, Gender: Female Date of : 1970 Age: 49 Procedure Date: 02/21/2020 Procedure Type: Transthoracic Echocardiogram Location: OP Height: 165.1 cm Weight: 63.5 kg BSA: 1.70 m2 Heart Rate: bpm BP: 118 / 60 mmHg Community Health Worker: Referring MD: Jaylen Urbina MD Symptoms: R06.00 - Dyspnea, unspecified Study Quality: Good ECG Rhythm: Sinus Conclusions: - The left ventricular systolic function is normal. The visually estimated ejection fraction is between 60-65%. - Mild hypokinesis in the basal inferior wall. Findings Left Ventricle Normal left ventricular cavity size. There is normal left ventricular wall thickness. The left ventricular systolic function is normal. The visually estimated ejection fraction is between 60-65%. Diastolic function is normal for age. Mild hypokinesis in the basal inferior wall. Prior Study Comparison Changes noted compared to prior study dated: 02/07/2020. See comments on wall motion. Measurements 2D Linear Measurements IVSd: 1.04 0.6-0.9/0.6-1.0 cm LVIDd: 3.95 3.9-5.3/4.2-5.9 cm LVIDd Index: 2.32 2.4-3.2/2.2-3.1 cm/m2 LVIDs: 2.69 2.0-3.6 cm LVPWd: 1.02 0.7-1.1 cm LV Mass: 161.67 67-162/88-224 g LV Mass Index: 95.10 43-95/49-115 g/m2 2D Systolic Function EF 4C: 57.10 >55% EF 2C: 59.70 >55% EF BiP: 58.70 >55% Updated in Other Vendor System with Status of Final [place] Centeno MD electronically signed on 02/21/2020 10:02:34 AM with status of Final
== END ==
LOC: HO.CARD 07:41
PROVIDERS: Visit Provider Internal Medicine Cardiovascular Disease
DX: I24.9 Acute ischemic heart disease, unspecified (principal); R06.00 Dyspnea, unspecified
CPT/HCPCS: 93308; 99212